=== PATIENT | male | born 1970 | race Caucasian/White ===

== ENCOUNTER 2016-12-17 19:57 | Inpatient (IN) | payer OTHER ==
[2016-12-17 21:46] VITALS: BMI 23.5
--- NOTE | 2016-12-17 21:51 | HP ---
CIWA Score - CIWA Score Nausea/Vomitin Muscle Tremors: 4-Moderate,w/Arms Extend Anxiety: 4-Mod. Anxious/Guarded Agitation: 4-Moderately Restless Paroxysmal Sweats: 3 Orientation: 2-Disoriented Date<2 days Tacttile Disturbances: 0-None Auditory Disturbances: 0-None Visual Disturbances: 0-None Headache: 0-None Present CIWA-Ar Total Score: 20 Admission ROS BHS - HPI Chief Complaint: C/O WITHDRAWAL SX'S. SEEKING DETOX TXMENT. Allergies/Adverse Reactions: Allergies Allergy/AdvReac Type Severity Reaction Status Date / Time No Known Allergies Allergy Verified 12/17/16 21:46 History of Present Illness: 46 Y.O. MALE WITH ALCOHOLISM HERE FOR DETOX TXMENT. THIS IS CLIENTS FIRST VISIT HERE. DENIES ANY SIGNIFICANT LENGTH OF SOBRIETY. CLIENT IS AWARE HIS LOS IS APPROX 5 DAYS. HE HAS AGREED TO THE ADMISSION. Exam Limitations: No Limitations - Ebola screening Have you traveled outside of the country in the last 21 days: No (N) Have you had contact with anyone from an Ebola affected area: No Have you been sick,other than usual withdrawal symptoms: No Do you have a fever: No - Review of Systems Constitutional: Chills, Loss of Appetite, Malaise, Night Sweats, Unintentional Wgt. Loss EENT: reports: No Symptoms Reported Respiratory: reports: No Symptoms reported Cardiac: reports: No Symptoms Reported GI: reports: Nausea, Poor Appetite, Vomiting : reports: No Symptoms Reported Musculoskeletal: reports: No Symptoms Reported Integumentary: reports: No Symptoms Reported Neuro: reports: Tremors Endocrine: reports: No Symptoms Reported Hematology: reports: No Symptoms Reported Psychiatric: reports: Anxious, Depressed Other Systems: Reviewed and Negative Patient History - Patient Medical History Hx Anemia: No Hx Asthma: No Hx Chronic Obstructive Pulmonary Disease (COPD): No Hx Cancer: No Hx Cardiac Disorders: No Hx Congestive Heart Failure: No Hx Hypertension: No Hx Hypercholesterolemia: No Hx Pacemaker: No HX Cerebrovascular Accident: No Hx Seizures: No Hx Dementia: No Hx Diabetes: No Hx Gastrointestinal Disorders: Yes (GERD) Hx Liver Disease: No Hx Genitourinary Disorders: No Hx Sexually Transmitted Disorders: No Hx Renal Disease (ESRD): No Hx Thyroid Disease: No Hx Human Immunodeficiency Virus (HIV): No Hx Hepatitis C: No Hx Depression: Yes (ON MEDS) Hx Suicide Attempt: No Hx Bipolar Disorder: No Hx Schizophrenia: No Other Medical History: BIPOLAR/ ANXIETY - Patient Surgical History Past Surgical History: Yes Other Surgical History: L INGUINAL HERNIA MESH Anesthesia Reaction: No - PPD History Previous Implant?: Yes Documented Results: Negative w/o proof Implanted On Prior R Admission?: No PPD to be Administered?: Yes - Smoking Cessation Smoking history: Current every day smoker Have you smoked in the past 12 months: Yes Aproximately how many cigarettes per day: 1 (E-CIG) Cigars Per Day: 0 Hx Chewing Tobacco Use: No Initiated information on smoking cessation: Yes 'Breaking Loose' booklet given: 12/17/16 - Substance & Tx. History Hx Alcohol Use: Yes Hx Substance Use: Yes Substance Use Type: Alcohol Hx Substance Use Treatment: Yes (JOSE DO) - Substances Abused VODKA Route: Oral Frequency: Daily Amount used: 1PINT Age of first use: 15 Date of Last Use: 12/17/16 THC Route: Smoking Frequency: Daily Amount used: $160/WEEK Age of first use: 11 Date of Last Use: 12/15/16 Family Disease History - Family Disease History Family Disease History: Heart Disease: Mother, Other: Father (AIDS . IVDA/ ALCOHOLISM) Admission Physical Exam [facility] - Vital Signs Vital Signs: Vital Signs - 24 hr 12/17/16 21:32 Temperature 97.2 F L Pulse Rate 122 H Respiratory 18 Rate Blood Pressure 140/86 - Physical General Appearance: Yes: Mild Distress, Alcohol on Breath, Intoxicated, Tremorous, Irritable, Anxious HEENTM: Yes: EOMI, Normocephalic, Normal Voice, BRANDON, Pharynx Normal Respiratory: Yes: Chest Non-Tender, Lungs Clear, Normal Breath Sounds, No Respiratory Distress, No Accessory Muscle Use Neck: Yes: No masses,lesions,Nodules, Supple, Trachea in good position Breast: Yes: Breast Exam Deferred Cardiology: Yes: Regular Rhythm, Regular Rate, S1, S2 Abdominal: Yes: Normal Bowel Sounds, Non Tender, Flat Genitourinary: Yes: Within Normal Limits Back: Yes: Normal Inspection Musculoskeletal: Yes: full range of Motion, Gait Steady Extremities: Yes: Normal Capillary Refill, Normal Range of Motion, Non-Tender, Tremors Neurological: Yes: Alert, Motor Strength 5/5 Integumentary: Yes: Normal Color, Warm, Moist Lymphatic: Yes: Within Normal Limits - Diagnostic (1) Alcohol dependence with uncomplicated withdrawal Current Visit: Yes Status: Chronic (2) Cannabis dependence, uncomplicated Current Visit: Yes Status: Chronic (3) Nicotine dependence Current Visit: Yes Status: Chronic Qualifiers: Nicotine product type: cigarettes Substance use status: uncomplicated Qualified Code(s): F17.210 - Nicotine dependence, cigarettes, uncomplicated Cleared for Admission [facility] - Detox or Rehab [facility] Level of Care: Medically Managed Detox Regimen/Protocol: Librium S Breath Alcohol Content Breath Alcohol Content: 0.044 Urine Drug Screen - Results Drug Screen Negative: No Urine Drug Screen Results: THC-Marijuana
[2016-12-17] MEDS ORDERED: MAGNESIUM HYDROX 2400MG/30ML ORAL SUSPENSION 30 ML CUP PO PRN (22:09)
[2016-12-17] MEDS ORDERED: MAG HYDROX/AL HYDROX/SIMETH 30 ML UNIT-DOSE CUP PO PRN (22:09)
[2016-12-17] MEDS ORDERED: ACETAMINOPHEN 325 MG TABLET (FP) PO PRN (22:09)
[2016-12-17] MEDS ORDERED: P-EPHED 60MG/TRIPROLIDI 2.5MG TABLET PO PRN (22:09)
[2016-12-17] MEDS ORDERED: guaiFENesin/D-METHORPHAN HB 10 ML UNIT-DOSE CUPS PO PRN (22:09)
[2016-12-17] MEDS ORDERED: IBUPROFEN 400 MG TABLET (FP) PO PRN (22:09)
[2016-12-17] MEDS ORDERED: MENTHOL/PHENOL 1 EACH UD MM PRN (22:09)
[2016-12-17] MEDS ORDERED: LOPERAMIDE HCL 2 MG CAPSULE PO PRN (22:09)
[2016-12-17] MEDS ORDERED: hydrOXYzine PAMOATE 50 MG CAPSULE (FP) PO PRN (22:09)
[2016-12-17] MEDS ORDERED: NICOTINE POLACRILEX 2 MG GUM BC PRN (22:09)
[2016-12-17] MEDS ORDERED: MAGNESIUM CITRATE 300 ML BOTTLE PO PRN (22:09)
[2016-12-17] MEDS ORDERED: chlordiazePOXIDE HCL 25 MG CAPSULE PO PRN (22:09)
[2016-12-17] MEDS: chlordiazePOXIDE HCL 25 MG CAPSULE PO SCH (22:53)
[2016-12-17] MEDS: diphenhydrAMINE HCL 50 MG CAPSULE PO PRN (22:54)
[2016-12-18] MEDS: chlordiazePOXIDE HCL 25 MG CAPSULE PO SCH ×4 (05:43→22:57)
[2016-12-18] MEDS: PRENATAL VITAMINS W/ FOLIC ACID TABLET (FP) PO SCH (10:13)
[2016-12-18 10:15] LABS: MCH 30.8 pg (25.7-33.7); MCHC 33.5 g/dl (32.0-35.9); MEAN CELL VOLUME 92.1 fl (80-96); MEAN PLT VOLUME 9.7 fl (7.5-11.1); PLATELET COUNT 235 K/MM3 (134-434); RDW 12.8 % (11.9-15.9); WHITE BLOOD COUNT 7.8 K/mm3 (4.0-10.0)
[2016-12-18 10:17] LABS: ALBUMIN 3.7 g/dl (3.4-5.0); ANION GAP 13 (8-16); CO2 25 mmol/L (21-32); GLUCOSE,RANDOM 75 mg/dL (74-106)
[2016-12-18 10:21] LABS: ALK PHOS 47 U/L (45-117); BILIRUBIN,TOTAL 0.6 mg/dL (0.2-1.0); CREATININE 0.8 mg/dL (0.7-1.3); SGOT/AST 35 U/L (15-37); SGPT/ALT 26 U/L (12-78); TOT PROT 7.5 g/dl (6.4-8.2)
--- NOTE | 2016-12-18 16:04 | CONSULT ---
[facility] Psychiatric Consult - Data Date of interview: 12/18/16 Admission source: [facility] Identifying data: First admission to [facility] for this 46 y/o male seeking detox treatment on for alcohol and cannabis dependence.Patient is single without children,domiciled and employed. Substance Abuse History: - Smoking Cessation. Smoking history: Current every day smoker. Have you smoked in the past 12 months: Yes. Aproximately how many cigarettes per day: 1 (E-CIG). Cigars Per Day: 0. Hx Chewing Tobacco Use: No. Initiated information on smoking cessation: Yes. 'Breaking Loose' booklet given: 12/17/16. - Substance & Tx. History. Hx Alcohol Use: Yes. Hx Substance Use: Yes. Substance Use Type: Alcohol. Hx Substance Use Treatment: Yes (JOSE DO). - Substances Abused. VODKA. Route: Oral. Frequency: Daily. Amount used: 1PINT. Age of first use: 15. Date of Last Use: 12/17/16. THC. Route: Smoking. Frequency: Daily. Amount used: $160/WEEK. Age of first use: 11. Date of Last Use: 12/15/16. Confirmed by patient in this interview. Medical History: GERD and a history of left inguinal herniorraphy. Psychiatric History: No reported history of psychiatric hospitalizations.Diagnosed with MDD/Anxiety Disorder.Mr Davis sees a psychiatrist at the [facility] outpatient drug program for medication management.He reports being on paxil,antabuse,gabapentin and acmprosate.Doses not provided to personal lines underwriter.Patient denies history of suicide attempts. Physical/Sexual Abuse/Trauma History: No history of sexual abuse. Additional Comment: Urine Drug Screen Results: THC-Marijuana.Noted. Mental Status Exam - Mental Status Exam Alert and Oriented to: Time, Place Cognitive Function: Good Patient Appearance: Well Groomed Mood: Withdrawn, Anxious Affect: Mood Congruent Patient Behavior: Fatigued, Appropriate, Cooperative Speech Pattern: Clear Voice Loudness: Normal Thought Process: Goal Oriented Thought Disorder: Not Present Hallucinations: Denies Suicidal Ideation: Denies Homicidal Ideation: Denies Insight/Judgement: Fair Sleep: Poorly, Difficulty falling asleep Appetite: Good Muscle strength/Tone: Normal Gait/Station: Normal Psychiatric Findings - Problem List ([place] 1, 2,3) (1) Alcohol dependence with uncomplicated withdrawal Current Visit: Yes Status: Acute (2) Cannabis dependence, uncomplicated Current Visit: Yes Status: Acute (3) Nicotine dependence Current Visit: Yes Status: Acute Qualifiers: Nicotine product type: cigarettes Substance use status: uncomplicated Qualified Code(s): F17.210 - Nicotine dependence, cigarettes, uncomplicated (4) Substance induced mood disorder Current Visit: Yes Status: Acute (5) MDD (major depressive disorder) Current Visit: Yes Status: Chronic - Initial Treatment Plan Initial Treatment Plan: Psychoeducation.Detoxification.Medications (verified through pharmacy claims of 12/01/16 @ [facility]) : paxil 20 mg po daily + gabapentin 300 mg po tid.No scripts needed at discharge (refills available from OPD provider).Side effects/benefits discussed with the patient.He agrees with this plan.Observation.
--- NOTE | 2016-12-18 16:11 | EKG ---
Test Reason : Blood Pressure : / mmHG Vent. Rate : 090 BPM Atrial Rate : 090 BPM P-R Int : 132 ms QRS Dur : 084 ms QT Int : 360 ms P-R-T Axes : 069 007 044 degrees QTc Int : 440 ms NORMAL SINUS RHYTHM NORMAL ECG NO PREVIOUS ECGS AVAILABLE Confirmed by JAMILA CASEY MD ([id number]) on 12/18/2016 4:11:29 PM Referred By: Confirmed By:JAMILA CASEY MD
[2016-12-18 17:24] LABS: URINE APPEARANCE CLEAR; URINE BILIRUBIN NEGATIVE (NEGATIVE); URINE BLOOD NEGATIVE (NEGATIVE); URINE COLOR LTYELLOW; URINE GLUCOSE (UA) NEGATIVE (NEGATIVE); URINE KETONE NEGATIVE (NEGATIVE); URINE LEUK ESTERASE NEGATIVE (NEGATIVE); URINE NITRITE NEGATIVE (NEGATIVE); URINE PROTEIN NEGATIVE (NEGATIVE); URINE UROBILINOGEN NEGATIVE E.U./dl (0.2-1.0)
--- NOTE | 2016-12-18 17:25 | PN ---
S CIWA - CIWA Score Nausea/Vomitin-No Nausea/No Vomiting Muscle Tremors: 4-Moderate,w/Arms Extend Anxiety: 4-Mod. Anxious/Guarded Agitation: 4-Moderately Restless Paroxysmal Sweats: 3 Orientation: 0-Oriented Tacttile Disturbances: 0-None Auditory Disturbances: 0-None Visual Disturbances: 0-None Headache: 0-None Present CIWA-Ar Total Score: 15 BHS Progress Note (SOAP) Subjective: Anxiety,tremors,sweating,interrupted sleep,restless Objective: 12/18/16 17:24 Vital Signs - 8 hr 12/18/16 12/18/16 12/18/16 10:03 13:31 17:00 Temperature 98.2 F 96.4 F L 97.1 F L Pulse Rate 114 H 110 H 83 Respiratory 20 20 18 Rate Blood Pressure 132/91 132/95 106/74 Laboratory Tests 12/18/16 12/18/16 12/18/16 07:50 07:50 07:50 WBC 7.8 RBC 4.89 Hgb 15.1 Hct 45.0 MCV 92.1 MCHC 33.5 RDW 12.8 Plt Count 235 MPV 9.7 Sodium 139 Potassium 3.5 Chloride 101 Carbon Dioxide 25 Anion Gap 13 BUN 8 Creatinine 0.8 Creat Clearance w eGFR > 60 Random Glucose 75 Calcium 9.0 Total Bilirubin 0.6 AST 35 ALT 26 Alkaline Phosphatase 47 Total Protein 7.5 Albumin 3.7 RPR Titer Nonreactive labs noted Assessment: 12/18/16 17:25 Withdrawal sx. Plan: Continue detox
--- NOTE | 2016-12-18 20:22 | PN ---
S Progress Note Note: received nurse call requests ensure encourage offer ensure as per ordered upon admission continue detox
[2016-12-18] MEDS: GABAPENTIN 300 MG CAPSULE (FP) PO SCH (22:57)
[2016-12-18] MEDS: THIAMINE HCL 100 MG TABLET (FP) PO SCH (22:57)
[2016-12-18] MEDS: diphenhydrAMINE HCL 50 MG CAPSULE PO PRN (22:59)
[2016-12-19] MEDS: chlordiazePOXIDE HCL 25 MG CAPSULE PO SCH ×3 (05:45→17:17)
[2016-12-19] MEDS: GABAPENTIN 300 MG CAPSULE (FP) PO SCH ×3 (05:45→22:11)
--- NOTE | 2016-12-19 10:19 | PN ---
S CIWA - CIWA Score Nausea/Vomitin-No Nausea/No Vomiting Muscle Tremors: 3 Anxiety: 4-Mod. Anxious/Guarded Agitation: 4-Moderately Restless Paroxysmal Sweats: 3 Orientation: 0-Oriented Tacttile Disturbances: 0-None Auditory Disturbances: 0-None Visual Disturbances: 0-None Headache: 0-None Present CIWA-Ar Total Score: 14 BHS Progress Note (SOAP) Subjective: Anxiety,tremors,sweating,interrupted sleep,restless. Objective: 12/19/16 10:18 Vital Signs - 8 hr 12/19/16 12/19/16 12/19/16 03:45 06:39 09:38 Temperature 96.0 F L 97.4 F L Pulse Rate 95 H 90 Respiratory 18 18 18 Rate Blood Pressure 122/95 127/95 Laboratory Tests 12/18/16 12/18/16 12/18/16 07:50 07:50 07:50 WBC 7.8 RBC 4.89 Hgb 15.1 Hct 45.0 MCV 92.1 MCHC 33.5 RDW 12.8 Plt Count 235 MPV 9.7 Sodium 139 Potassium 3.5 Chloride 101 Carbon Dioxide 25 Anion Gap 13 BUN 8 Creatinine 0.8 Creat Clearance w eGFR > 60 Random Glucose 75 Calcium 9.0 Total Bilirubin 0.6 AST 35 ALT 26 Alkaline Phosphatase 47 Total Protein 7.5 Albumin 3.7 Urine Color Urine Appearance Urine pH Ur Specific [place] Urine Protein Urine Glucose (UA) Urine Ketones Urine Blood Urine Nitrite Urine Bilirubin Urine Urobilinogen Ur Leukocyte Esterase RPR Titer Nonreactive 12/18/16 16:30 WBC RBC Hgb Hct MCV MCHC RDW Plt Count MPV Sodium Potassium Chloride Carbon Dioxide Anion Gap BUN Creatinine Creat Clearance w eGFR Random Glucose Calcium Total Bilirubin AST ALT Alkaline Phosphatase Total Protein Albumin Urine Color Ltyellow Urine Appearance Clear Urine pH 5.0 Ur Specific [place] 1.023 Urine Protein Negative Urine Glucose (UA) Negative Urine Ketones Negative Urine Blood Negative Urine Nitrite Negative Urine Bilirubin Negative Urine Urobilinogen Negative Ur Leukocyte Esterase Negative RPR Titer labs noted Assessment: 12/19/16 10:19 withdrawal sx. Plan: continue detox
[2016-12-19] MEDS: PARoxetine HCL 20 MG TABLET (FP) PO SCH (10:20)
[2016-12-19] MEDS: PRENATAL VITAMINS W/ FOLIC ACID TABLET (FP) PO SCH (10:20)
[2016-12-19] MEDS: chlordiazePOXIDE 5 MG CAPSULE PO SCH (22:11)
[2016-12-19] MEDS: THIAMINE HCL 100 MG TABLET (FP) PO SCH (22:11)
[2016-12-19] MEDS: diphenhydrAMINE HCL 50 MG CAPSULE PO PRN (22:12)
[2016-12-20] MEDS: chlordiazePOXIDE 5 MG CAPSULE PO SCH ×3 (05:34→17:16)
[2016-12-20] MEDS: GABAPENTIN 300 MG CAPSULE (FP) PO SCH ×3 (05:34→22:07)
[2016-12-20] MEDS: PRENATAL VITAMINS W/ FOLIC ACID TABLET (FP) PO SCH (10:09)
[2016-12-20] MEDS: PARoxetine HCL 20 MG TABLET (FP) PO SCH (10:10)
--- NOTE | 2016-12-20 10:22 | PN ---
BHS Progress Note (SOAP) Subjective: Sweating,interrupted sleep,restless Objective: 12/20/16 10:21 Vital Signs - 8 hr 12/20/16 12/20/16 03:30 06:27 Temperature 97.4 F L Pulse Rate 108 H Respiratory 18 16 Rate Blood Pressure 120/91 Laboratory Last Values WBC 7.8 K/mm3 (4.0-10.0) 12/18/16 07:50 RBC 4.89 M/mm3 (4.00-5.60) 12/18/16 07:50 Hgb 15.1 GM/dL (11.7-16.9) 12/18/16 07:50 Hct 45.0 % (35.4-49) 12/18/16 07:50 MCV 92.1 fl (80-96) 12/18/16 07:50 MCHC 33.5 g/dl (32.0-35.9) 12/18/16 07:50 RDW 12.8 % (11.9-15.9) 12/18/16 07:50 Plt Count 235 K/MM3 (134-434) 12/18/16 07:50 MPV 9.7 fl (7.5-11.1) 12/18/16 07:50 Sodium 139 mmol/L (136-145) 12/18/16 07:50 Potassium 3.5 mmol/L (3.5-5.1) 12/18/16 07:50 Chloride 101 mmol/L (98-107) 12/18/16 07:50 Carbon Dioxide 25 mmol/L (21-32) 12/18/16 07:50 Anion Gap 13 (8-16) 12/18/16 07:50 BUN 8 mg/dL (7-18) 12/18/16 07:50 Creatinine 0.8 mg/dL (0.7-1.3) 12/18/16 07:50 Creat Clearance w eGFR > 60 (>60) 12/18/16 07:50 Random Glucose 75 mg/dL (74-106) 12/18/16 07:50 Calcium 9.0 mg/dL (8.5-10.1) 12/18/16 07:50 Total Bilirubin 0.6 mg/dL (0.2-1.0) 12/18/16 07:50 AST 35 U/L (15-37) 12/18/16 07:50 ALT 26 U/L (12-78) 12/18/16 07:50 Alkaline Phosphatase 47 U/L (45-117) 12/18/16 07:50 Total Protein 7.5 g/dl (6.4-8.2) 12/18/16 07:50 Albumin 3.7 g/dl (3.4-5.0) 12/18/16 07:50 Urine Color Ltyellow 12/18/16 16:30 Urine Appearance Clear 12/18/16 16:30 Urine pH 5.0 (5.0-8.0) 12/18/16 16:30 Ur Specific [place] 1.023 (1.001-1.035) 12/18/16 16:30 Urine Protein Negative (NEGATIVE) 12/18/16 16:30 Urine Glucose (UA) Negative (NEGATIVE) 12/18/16 16:30 Urine Ketones Negative (NEGATIVE) 12/18/16 16:30 Urine Blood Negative (NEGATIVE) 12/18/16 16:30 Urine Nitrite Negative (NEGATIVE) 12/18/16 16:30 Urine Bilirubin Negative (NEGATIVE) 12/18/16 16:30 Urine Urobilinogen Negative E.U./dl (0.2-1.0) 12/18/16 16:30 Ur Leukocyte Esterase Negative (NEGATIVE) 12/18/16 16:30 RPR Titer Nonreactive (NONREACTIVE) 12/18/16 07:50 labs noted Assessment: 12/20/16 10:21 withdrawal sx. Plan: Continue detox
[2016-12-20] MEDS: chlordiazePOXIDE HCL 10 MG CAPSULE PO SCH (22:06)
[2016-12-20] MEDS: THIAMINE HCL 100 MG TABLET (FP) PO SCH (22:06)
[2016-12-20] MEDS: diphenhydrAMINE HCL 50 MG CAPSULE PO PRN (22:07)
[2016-12-21] MEDS: chlordiazePOXIDE HCL 10 MG CAPSULE PO SCH (05:39)
[2016-12-21] MEDS: GABAPENTIN 300 MG CAPSULE (FP) PO SCH (05:39)
[2016-12-21 06:29] VITALS: BP 134/83; PULSE 109; TEMP 96.7
--- NOTE | 2016-12-21 09:49 | DS ---
[facility] Detox Discharge Summary Admission Date: 12/17/16 Discharge Date: 12/21/16 - History Present History: Alcohol Dependence, Cannabis Dependence Pertinent Past History: Smoker GERD - Physical Exam Results Vital Signs: Vital Signs Temperature 96.7 F L 12/21/16 06:28 Pulse Rate 109 H 12/21/16 06:28 Respiratory Rate 18 12/21/16 06:28 Blood Pressure 134/83 12/21/16 06:28 O2 Sat by Pulse Oximetry (%) Laboratory Tests 12/18/16 12/18/16 12/18/16 07:50 07:50 07:50 WBC 7.8 RBC 4.89 Hgb 15.1 Hct 45.0 MCV 92.1 MCHC 33.5 RDW 12.8 Plt Count 235 MPV 9.7 Sodium 139 Potassium 3.5 Chloride 101 Carbon Dioxide 25 Anion Gap 13 BUN 8 Creatinine 0.8 Creat Clearance w eGFR > 60 Random Glucose 75 Calcium 9.0 Total Bilirubin 0.6 AST 35 ALT 26 Alkaline Phosphatase 47 Total Protein 7.5 Albumin 3.7 Urine Color Urine Appearance Urine pH Ur Specific [place] Urine Protein Urine Glucose (UA) Urine Ketones Urine Blood Urine Nitrite Urine Bilirubin Urine Urobilinogen Ur Leukocyte Esterase RPR Titer Nonreactive 12/18/16 16:30 WBC RBC Hgb Hct MCV MCHC RDW Plt Count MPV Sodium Potassium Chloride Carbon Dioxide Anion Gap BUN Creatinine Creat Clearance w eGFR Random Glucose Calcium Total Bilirubin AST ALT Alkaline Phosphatase Total Protein Albumin Urine Color Ltyellow Urine Appearance Clear Urine pH 5.0 Ur Specific [place] 1.023 Urine Protein Negative Urine Glucose (UA) Negative Urine Ketones Negative Urine Blood Negative Urine Nitrite Negative Urine Bilirubin Negative Urine Urobilinogen Negative Ur Leukocyte Esterase Negative RPR Titer labs noted Pertinent Admission Physical Exam Findings: Withdrawal Symptoms - Treatment Hospital Course: Detox Protocol Followed, Detoxed Safely, Responded well, Discharged Condition Good - Medication Discharge Medications: Ambulatory Orders Gabapentin [Gabapentin] 300 mg PO TID 12/21/16 Paroxetine HCl [Paxil] 20 mg PO DAILY 12/21/16 - Diagnosis (1) Alcohol dependence with uncomplicated withdrawal Status: Acute (2) Cannabis dependence, uncomplicated Status: Acute (3) Nicotine dependence Status: Acute Qualifiers: Nicotine product type: cigarettes Substance use status: uncomplicated Qualified Code(s): F17.210 - Nicotine dependence, cigarettes, uncomplicated (4) Substance induced mood disorder Status: Acute (5) MDD (major depressive disorder) Status: Chronic - AMA Did Patient Leave Against Medical Advice: No
== END 2016-12-21 08:58 | disposition home or self-care (01) | DRG 775 ==
LOC: YASAS 19:57 → Y3N 22:17
PROVIDERS: ADMIT Internal Medicine; ATTEND Internal Medicine
PROC: HZ2ZZZZ Detoxification Services for Substance Abuse Treatment (ICD-10-PCS; principal; 2016-12-17)
DX: F10.230 Alcohol dependence with withdrawal, uncomplicated (principal); F12.20 Cannabis dependence, uncomplicated; F17.210 Nicotine dependence, cigarettes, uncomplicated; F19.24 Other psychoactive substance dependence with psychoactive substance-induced mood disorder; F33.9 Major depressive disorder, recurrent, unspecified; K21.9 Gastro-esophageal reflux disease without esophagitis
CPT/HCPCS: 36415; 80053; 81003; 85027; 86593; 93005; 93010